=== PATIENT | female | born 1990 | race Caucasian/White ===

== ENCOUNTER 2018-09-02 07:26 | Emergency (ER) | payer OTHER, BC ==
[~2018-09-02] VITALS: Ht 175.3 cm; Wt 81.7 kg
[2018-09-03 08:10] LABS: HCV ANTIBODY <0.1 (0.0-0.9); HIV SCREEN 4TH GENERATION WRFX Non Reactive (Non Reactive)
== END 2018-09-02 08:17 | disposition home or self-care (01) ==
LOC: ER 07:26
PROVIDERS: Physician Assistant
DX: Z77.21 Contact with and (suspected) exposure to potentially hazardous body fluids (principal)
CPT/HCPCS: 84460; 86317; 86703; 86803; 87340; 87389; 99283